=== PATIENT | male | born 1945 | race Caucasian/White ===

== ENCOUNTER → 2017-10-16 | Day surgery (SDC) | payer OTHER ==
[~2017-10-16] MED LIST: DEXAMETHASONE SOD PHOS 4 MG/ML VIAL ONE; EPINEPHrine HCL (1:1000) 1 MG/ML VIAL ONE; LACTATED RINGER'S 1000 ML INJ 1,000 ML ONE; MIDAZOLAM HCL 2 MG/2 ML VIAL ONE; MOXIFLOXACIN 0.5% OPHT SOLN 3 ML BTL ONE; ONDANSETRON HCL 4 MG/2 ML VIAL IV PUSH ONE; PHENYLEPHRINE HCL 10% OPTH SOLN 5 ML BTL ONE; PROPOFOL 200 MG/20 ML AMP IV ONE; SODIUM CHLORIDE 0.9% INJ 10 ML ONE; TETRACAINE 0.5% OPTH SOLN 4 ML BTL ONE; TOBRAMYCIN/DEXAMETHASONE OPTH OINT 3.5 GM TUBE ONE; ceFAZolin INJ 1,000 MG VIAL ONE; prednisoLONE ACETATE 1% OPHT SUSP 5 ML BTL ONE
--- NOTE | 2017-10-18 12:42 | MP ---
cc: Giovani Hubbrad MD DATE OF OPERATION: 10/16/2017 PREOPERATIVE DIAGNOSIS: Full-thickness macular hole, right eye. POSTOPERATIVE DIAGNOSIS: Full-thickness macular hole, right eye. PROCEDURE PERFORMED: Pars plana vitrectomy, removal of internal limiting membrane, macular hole closure, air fluid exchange, insertion of 18% SF6 gas, right eye. COMPLICATIONS: None. ESTIMATED BLOOD LOSS: Less than 1 mL. ANESTHESIA: General, Dr. Francisco. INDICATIONS FOR PROCEDURE: This is a delightful patient who suffered of significant vision loss on his right eye. The patient was found to have a full thickness macular hole for unknown duration, possibly many months, up to 1 year. The patient elected for surgical correction. The patient understands the risks, benefits, alternatives and possibility of some visual distortion remaining. PROCEDURE NOTE: After informed consent was obtained, the patient brought to the operating room. General anesthesia was established. The right eye was prepped and draped in sterile fashion with Betadine in the conjunctival fornix. A 3 port pars plana vitrectomy was established with self-containing cannula. Core vitreous was evacuated and peripheral vitreous traction was relieved with vitrectomy. The ILM was highlighted with ICG and removed with alkaline ILM forceps. Scleral depressed examination revealed areas of retinal thinning, which were treated with endolaser. Air fluid exchange was carried out. Macular hole noted to close under direct visualization. 18% SF6 gas was instilled. The trocars removed and sclerotomies closed. Subconjunctival injection of Ancef and dexamethasone were given. The eye was patched with tobramycin ointment. The patient was brought to recovery room in stable condition and continue to followup with [facility] for his postoperative care. MD MARY GRACE Moore/NOY , 08:39 PM , 08:59 PM
== END | disposition home or self-care (01) ==
LOC: ESDC 07:10
PROVIDERS: ATTEND Ophthalmology
DX: H35.341 Macular cyst, hole, or pseudohole, right eye (principal)
CPT/HCPCS: 00145; 67042; J0171; J0690; J1100; J2250; J2405; J3010; J7120